=== PATIENT | female | born 1955 | race African-American/Black ===

== ENCOUNTER 2017-11-19 13:03 | Emergency (ER) | payer OTHER ==
[~2017-11-19] VITALS: Ht 165.1 cm; Wt 75.9 kg
[~2017-11-19 13:03] MED LIST: AMLO-511 PO; GLYB1.253 PO; LISI-662 PO; METO-296 PO; OXYB5 PO; PANT40TA25 PO; SIMV-259 PO; SITA25 PO
[2017-11-19 13:32] LABS: GLUCOSE,POINT OF CARE 249 MG/DL (70-110)
[2017-11-19] MEDS ORDERED: KETOROLAC TROMETHAMINE 30 MG/ML VIAL IM ONE (14:00)
[2017-11-19] MEDS ORDERED: GLYB2.5 PO (14:02)
[2017-11-19] MEDS ORDERED: LISI-661 PO (14:02)
[2017-11-19 14:10] VITALS: BP 163/105
== END 2017-11-19 14:51 | disposition home or self-care (01) ==
LOC: EMS 13:04 → EDBD 13:04 → EMS 14:51
DX: S13.4XXA Sprain of ligaments of cervical spine, initial encounter (principal); E11.65 Type 2 diabetes mellitus with hyperglycemia; I10 Essential (primary) hypertension; E78.00 Pure hypercholesterolemia, unspecified; K21.9 Gastro-esophageal reflux disease without esophagitis; X58.XXXA Exposure to other specified factors, initial encounter; Y93.89 Activity, other specified; Y92.89 Other specified places as the place of occurrence of the external cause; Y99.8 Other external cause status
CPT/HCPCS: 82962; 96372; 99283; J1885

== ENCOUNTER 2018-09-07 12:53 | Emergency (ER) | payer OTHER ==
[~2018-09-07] VITALS: Ht 165.1 cm; Wt 50.0 kg
[~2018-09-07 12:53] MED LIST changes: -GLYB1.253 PO; +GLYB2.5 PO; +LISI-661 PO; -LISI-662 PO
[2018-09-07 13:39] LABS: GLUCOSE,POINT OF CARE 166 MG/DL (70-110)
[2018-09-07] MEDS ORDERED: ASPI-1182 PO (13:40)
[2018-09-07] MEDS ORDERED: SIME125C PO (13:40)
[2018-09-07] MEDS ORDERED: SITA100 PO (13:40)
[2018-09-07] MEDS ORDERED: ATOR40TA28 PO (13:40)
[2018-09-07] MEDS ORDERED: ACET-2247 PO (13:42)
[2018-09-07] MEDS ORDERED: METF-960 PO (13:42)
[2018-09-07 15:14] LABS: BASOPHILS % (AUTO) 0.4 % (0.0-2.0); EOSINOPHILS % (AUTO) 10.5 % (1.0-6.0); HEMATOCRIT 41.3 % (36-46); HEMOGLOBIN 13.4 g/dL (12.0-16.0); LYMPHOCYTES # (AUTO) 2.1 K/uL (1.0-4.8); LYMPHOCYTES % (AUTO) 30.9 % (22.0-44.0); MEAN CORPUSCULAR HEMOGLOBIN 27.4 pg (26.0-34.0); MEAN CORPUSCULAR HGB CONC 32.4 G/dL (31.0-37.0); MEAN CORPUSCULAR VOLUME 84 fL (80-100); MONOCYTES # (AUTO) 0.5 K/uL (0.1-1.0); MONOCYTES % (AUTO) 7.5 % (2.0-9.0); NEUTROPHILS # (AUTO) 3.5 K/uL (1.8-7.7); NEUTROPHILS % (AUTO) 50.7 % (40.0-70.0); PLATELET COUNT (AUTO) 277 K/uL (150-450); RED CELL DISTRIBUTION WIDTH 15.2 % (11.5-14.5)
[2018-09-07 15:19] LABS: ANION GAP 6 mmol/L (8-16); CALCIUM, TOTAL 9.4 mg/dL (8.8-10.5); CARBON DIOXIDE 25 mmol/L (22-29); CHLORIDE 103 mmol/L (98-107); GLOMERULAR FILTR. RATE CALC > 60 mL/min (>60); GLUCOSE,RANDOM 132 mg/dL (70-110); SODIUM SERUM 134 mmol/L (136-145); UREA NITROGEN, BLOOD 22 mg/dL (7-18)
[2018-09-07 15:30] LABS: POTASSIUM 4.6 mmol/L (3.5-5.1)
[2018-09-07 15:31] LABS: B-TYPE NATRIURETIC PEPTIDE 12 pg/mL (0-100)
[2018-09-07 15:44] LABS: ALANINE AMINOTRANSFERASE 28 U/L (12-78); ALBUMIN 2.9 g/dL (3.4-5.0); ALKALINE PHOSPHATASE 77 U/L (46-116); ASPARTATE AMINOTRANSFERASE 51 U/L (15-37); BILIRUBIN,TOTAL 0.5 mg/dL (0.1-1.0); CREATINE KINASE, TOTAL ONLY 446 U/L (26-192); TOTAL PROTEIN, SERUM 7.7 g/dL (6.4-8.2)
[2018-09-07] MEDS ORDERED: SODIUM CHLORIDE 0.9% 1,000 ML IV ONE (16:00)
[2018-09-07 18:03] LABS: APPEARANCE,URINE CLEAR (CLEAR); BILIRUBIN,URINE NEGATIVE (NEGATIVE); GLUCOSE, URINE (UA) 100 mg/dL (NEGATIVE); KETONES,URINE NEGATIVE (NEGATIVE); LEUKOCYTE ESTERASE ,URINE SMALL (NEGATIVE); NITRATE,URINE POSITIVE (NEGATIVE); OCCULT BLOOD,URINE NEGATIVE (NEGATIVE); PH,URINE 5.5 (5.0-8.0); PROTEIN,URINE NEGATIVE (NEGATIVE); UROBILINOGEN,URINE 0.2 mg/dL (<=1.0)
[2018-09-07 18:21] LABS: BACTERIA,URINE Moderate /HPF (None Seen); RBC,URINE None Seen /HPF (0-2)
[2018-09-07 18:22] LABS: SQUAMOUS EPITHELIAL CELL,UR Rare /LPF (None Seen)
[2018-09-07] MEDS ORDERED: CefTRIAXone 1 GM/DEXTROSE 50 ML IV ONE (18:30)
[2018-09-07 19:45] VITALS: BP 136/79
== END 2018-09-07 20:20 | disposition home or self-care (01) ==
LOC: EMS 12:54
DX: N39.0 Urinary tract infection, site not specified (principal); E86.0 Dehydration; I10 Essential (primary) hypertension; E78.00 Pure hypercholesterolemia, unspecified; E11.9 Type 2 diabetes mellitus without complications; K21.9 Gastro-esophageal reflux disease without esophagitis; F32.9 Major depressive disorder, single episode, unspecified; Z79.82 Long term (current) use of aspirin; Z79.899 Other long term (current) drug therapy
CPT/HCPCS: 36415; 71045; 80053; 81001; 82550; 82962; 83880; 84484; 85025; 87077; 87086; 87186; 93005; 96361; 96365; 99285; J0696; J7030